=== PATIENT | female | born 1985 | race Caucasian/White ===

== ENCOUNTER 2017-05-30 11:41 | Inpatient (IN) | payer MEDICAID ==
[2017-05-30] MEDS: LACTATED RINGERS 1,000 ML IV SCH ×3 (14:40→17:18)
[2017-05-30] MEDS: SUBLIMAZE IV PRN ×2 (14:40→16:37)
[2017-05-30] MEDS ORDERED: BRETHINE SUB-Q PRN (14:52)
[2017-05-30] MEDS ORDERED: MINERAL OIL PO PRN (14:52)
[2017-05-30] MEDS ORDERED: ePHEDrine SULFATE IV PRN ×2 (14:52→16:48)
[2017-05-30] MEDS ORDERED: STADOL IV PRN (14:52)
[2017-05-30] MEDS ORDERED: BRETHINE IVP PRN (14:52)
[2017-05-30] MEDS ORDERED: SUBLIMAZE IV PRN (14:52)
[2017-05-30] MEDS ORDERED: XYLOCAINE 2% INFILTRATI ONE (14:52)
[2017-05-30] MEDS ORDERED: ZOFRAN IV PRN (14:52)
[2017-05-30] MEDS ORDERED: PITOCin/NS 20 UNIT/1000ML DRIP 20 UNITS/1,000 ML BAG IV SCH ×2 (15:00)
[2017-05-30] MEDS ORDERED: LACTATED RINGERS 1,000 ML IV SCH (15:00)
[2017-05-30] MEDS ORDERED: PITOCin/NS 30 UNIT/500ML 30 UNITS/500 ML BAG IV SCH ×2 (15:00)
[2017-05-30 15:25] LABS: Hematocrit 40.4 % (30.3-42.9); Mean Corpuscular HGB Conc 35 % (30-34); Mean Corpuscular Hemoglobin 33 pg (28-32); Mean Corpuscular Volume 94 fl (79-97); Red Blood Count 4.31 M/mm3 (3.65-5.03); Red Cell Distribution Width 13.2 % (13.2-15.2)
[2017-05-30 15:48] LABS: Platelet Count 204 K/mm3 (140-440)
[2017-05-30] MEDS ORDERED: NARCAN 2 MG/2 ML IV PRN (16:48)
[2017-05-30] MEDS ORDERED: fentaNYL-BUPIV 2 MCG/ML-0.125% 200 MCG/100 ML BAG EPIDURAL SCH (17:00)
--- NOTE | 2017-05-30 17:05 | Anesthesia Consultation ---
Anesthesia Consult and Med Hx Date of service: 05/30/17 - Airway Anesthetic Teeth Evaluation: Good ROM Head & Neck: Adequate Mental/Hyoid Distance: Adequate Mallampati Class: Class II Intubation Access Assessment: Probably Good - Pre-Operative Health Status ASA Pre-Surgery Classification: ASA2 Proposed Anesthetic Plan: Epidural, Spinal - Pulmonary Hx Asthma: No COPD: No Hx Pneumonia: No - Cardiovascular System Hx Hypertension: No - Central Nervous System Hx Seizures: No Hx Psychiatric Problems: No - Endocrine Hx Renal Disease: No Hx End Stage Renal Disease: No Hx Hypothyroidism: No Hx Hyperthyroidism: No - Hematic Hx Anemia: No Hx Sickle Cell Disease: No - Other Systems Hx Alcohol Use: No
[2017-05-30] MEDS ORDERED: D5LR 1,000 ML IV SCH (19:00)
--- NOTE | 2017-05-30 23:18 | History and Physical Report ---
History of Present Illness Date of examination: 05/30/17 Date of admission: 05/30/17 11:42 Chief complaint: I'm having contractions History of present illness: Patient is a 31 year old who presents at 38 weeks today with EDC 06/13/17. Patient started care at 16 weeks after moving here from [place]. Past History Past Medical History: no pertinent history Past Surgical History: no surgical history Social history: - Obstetrical History Expected Date of Delivery: 06/13/17 Actual Gestation: 38 Week(s) 0 Day(s) : 2 Para: 1 Number of Living Children: 1 Medications and Allergies Allergies Allergy/AdvReac Type Severity Reaction Status Date / Time No Known Allergies Allergy Verified 05/30/17 14:15 Home Medications Medication Instructions Recorded Confirmed Last Taken Type Pnv,Calcium 72/Iron/Folic Acid 1 tab PO QDAY 05/30/17 05/30/17 05/29/17 18:00 History [Pnv Plus Multivit Tab] Active Meds: Active Medications Butorphanol Tartrate (Stadol) 1 mg IV Q2H PRN PRN Reason: Pain, Moderate (4-6) Ephedrine Sulfate (Ephedrine Sulfate) 10 mg IV Q2M PRN PRN Reason: Hypotension Fentanyl (Sublimaze) 100 mcg IV Q2H PRN PRN Reason: Labor Pain Last Admin: 05/30/17 16:37 Dose: 100 mcg Fentanyl (Sublimaze) 100 mcg IV Q2H PRN PRN Reason: Labor Pain Oxytocin/Sodium Chloride (Pitocin/Ns 20 Unit/1000ml Drip) 20 units in 1,000 mls @ 0 mls/hr IV DIRECT SHWETA PRN Reason: As Directed Oxytocin/Sodium Chloride (Pitocin/Ns 20 Unit/1000ml Drip) 20 units in 1,000 mls @ 125 mls/hr IV DIRECT SHWETA Oxytocin/Sodium Chloride (Pitocin/Ns 30 Unit/500ml) 30 units in 500 mls @ 1 mls /hr IV TITR SHWETA; 1 MILLIUNITS/MIN PRN Reason: Protocol Oxytocin/Sodium Chloride (Pitocin/Ns 30 Unit/500ml) 30 units in 500 mls @ 2 mls /hr IV TITR SHWETA PRN Reason: Protocol Fentanyl/Bupivacaine/Sodium Chlor (Fentanyl-Bupiv 2 Mcg/Ml-0.125%) 200 mcg in 100 mls @ 12 mls/hr EPIDURAL TITR SHWETA PRN Reason: Protocol Last Admin: 05/30/17 17:42 Dose: 12 mls/hr Dextrose/Lactated Ringer's (D5lr) 1,000 mls @ 125 mls/hr IV DIRECT SHWETA Last Admin: 05/30/17 18:52 Dose: 125 mls/hr Mineral Oil (Mineral Oil) 30 ml PO QHS PRN PRN Reason: Constipation Naloxone HCl (Narcan 2 Mg/2 Ml) 0.2 mg IV Q5M PRN PRN Reason: Respiratory sedation Ondansetron HCl (Zofran) 4 mg IV Q8H PRN PRN Reason: Nausea And Vomiting Terbutaline Sulfate (Brethine) 0.25 mg SUB-Q ONCE PRN PRN Reason: Hyperstimulation/Hypertonicity Terbutaline Sulfate (Brethine) 0.25 mg IVP ONCE PRN PRN Reason: Hyperstimulation/Hypertonicity Review of Systems All systems: negative Genitourinary: pelvic pain, contractions - Vital Signs Vital signs: Vital Signs Pulse Pulse Ox 73 100 05/30/17 11:49 05/30/17 11:49 Temp Pulse Resp BP Pulse Ox 97.2 F L 107 H 20 110/56 99 05/30/17 20:00 05/30/17 23:11 05/30/17 20:00 05/30/17 23:09 05/30/17 23:11 - Physical Exam Cardiovascular: Regular rate, Normal S1, Normal S2 Lungs: Positive: Clear to auscultation, Normal air movement Abdomen: Positive: normal appearance, soft, normal bowel sounds Genitourinary (Female): Positive: normal external genitalia, normal perenium Vagina: Positive: normal moisture - Obstetrical FHR: auscultation normal Cervical Dilatation: 2 Cervical Effacement Percentage: 90 station: -2 Uterine Contraction Frequency (min): 5 Uterine Contraction Pattern: Regular Uterine Tone Measurement Phase: Contraction Uterine Contraction Intensity: Moderate Results Result Diagrams: 05/30/17 14:40 Abnormal lab results 05/30/17 Range/Units 14:40 WBC 11.9 H (4.5-11.0) K/mm3 MCH 33 H (28-32) pg MCHC 35 H (30-34) % All other labs normal. Assessment and Plan IUP at 38 weeks in active labor. Admit to L&D. AROM when able. Patient may have epidural. Anticipate .
--- NOTE | 2017-05-30 23:48 | Procedure Note ---
OB Delivery Note - Delivery Date of Delivery: 05/30/17 Surgeon: HAROLDO RODRIGUEZ Estimated blood loss: 300cc - Vaginal Delivery presentation: vertex Delivery position: OA Intrapartum events: none Delivery induction: none Delivery augmentation: rupture of membranes Delivery monitor: external FHT, external uterine Route of delivery: Delivery placenta: spontaneous Delivery cord: nuchal cord (x2), 3 umbilical vessels Episiotomy: none Delivery laceration: 1st degree Delivery repair: chromic Anesthesia: epidural Delivery comments: Viable male delivered over intact perineum with double nuchal cord easily reduced on the perineum. Weight 6 pounds 7 ounces. Apgars 8,9. Placenta delivered spontaneously and intact with 3vc. Small laceration repaired with 3.0 chromic. Patient tolerated procedure well. Excellent hemostasis - Infant A at 1 minute: 8 at 5 minutes: 9 Infant Gender: Male (6 pounds 7 ounces)
[2017-05-31] MEDS: MOTRIN PO SCH ×2 (00:20→01:37)
[2017-05-31] MEDS ORDERED: TUCKS PAD TP PRN (00:21)
[2017-05-31] MEDS ORDERED: ZOFRAN IV PRN (00:21)
[2017-05-31] MEDS ORDERED: NORCO 5/325 PO PRN (00:21)
[2017-05-31] MEDS ORDERED: LANSINOH TP PRN (00:21)
[2017-05-31] MEDS ORDERED: PHENERGAN PO PRN (00:21)
[2017-05-31] MEDS ORDERED: DULCOLAX PR PRN (00:21)
[2017-05-31] MEDS ORDERED: BENADRYL PO PRN (00:21)
[2017-05-31] MEDS ORDERED: SODIUM CHLORIDE FLUSH SYRINGE 10 ML IV PRN (00:21)
[2017-05-31] MEDS ORDERED: MILK OF MAGNESIA PO PRN (00:21)
[2017-05-31] MEDS ORDERED: PHENERGAN PR PRN (00:21)
[2017-05-31] MEDS ORDERED: TYLENOL PO PRN (00:21)
[2017-05-31] MEDS ORDERED: DERMOPLAST TP PRN (02:04)
[2017-05-31 12:05] LABS: Hematocrit 32.7 % (30.3-42.9); Hemoglobin 11.3 gm/dl (10.1-14.3)
[2017-05-31] MEDS: PRENATAL VITAMIN PO SCH (14:05)
[2017-05-31] MEDS: COLACE PO SCH ×2 (14:05→21:31)
--- NOTE | 2017-05-31 17:35 | Progress Note ---
Subjective Date of service: 05/31/17 Interval history: 1st day after normal vaginal delivery Patient is in the bed, comfortable. Pain is well controlled with pain meds. Ambulated well. No residual neurological deficit. No anesthesia complications Objective - Constitutional Vitals: Vital Signs - 12hr 05/31/17 08:55 Temperature 98.2 F Pulse Rate 80 Respiratory 16 Rate Blood Pressure 97/58 [Left] - Labs CBC & Chem 7: 05/31/17 11:45
[2017-06-01] MEDS: MOTRIN PO SCH ×2 (05:04→12:49)
[2017-06-01] MEDS ORDERED: BOOSTRIX IM ONE (06:00)
--- NOTE | 2017-06-01 11:09 | Progress Note ---
Assessment and Plan PPD 2 s/p . Doing well. Baby being tested for bili and if ok, patient would like to be discharged today. Subjective - Subjective Date of service: 06/01/17 Interval history: Patient is a 31 year old who presents at 38 weeks today with EDC 06/13/17. Patient started care at 16 weeks after moving here from [place]. Patient reports: appetite normal, voiding normally, pain well controlled, ambulating normally : doing well Objective - Vital Signs Latest vital signs: Vital Signs Temp Pulse Resp BP Pulse Ox 06/01/17 08:25 97.7 F 88 18 91/43 05/31/17 23:18 98.3 F 92 H 18 100/60 98 05/31/17 12:00 98.4 F 95 H 16 94/61 Intake and Output 05/31/17 06/01/17 06/01/17 22:59 06:59 14:59 Intake Total 360 600 120 Output Total 600 Balance -240 600 120 Intake: Oral 360 240 120 Intake, Free Water 360 Output: Urine 600 Void 600 Other: Total, Intake Amount 120 240 120 Total, Output Amount 600 # Voids Void 3 2 - Exam Breasts: Present: deferred Cardiovascular: Present: Regular rate, Normal S1, Normal S2 Lungs: Present: Clear to auscultation, Normal air movement Abdomen: Present: normal appearance, soft, normal bowel sounds Vulva: both: normal Uterus: Present: normal, firm Extremities: Present: normal Deep Tendon Reflex Grade: Normal +2
--- NOTE | 2017-06-01 11:12 | Discharge Summary ---
Providers - Providers Date of Admission: 05/30/17 11:42 Date of discharge: 06/01/17 Attending physician: HAROLDO RODRIGUEZ Primary care physician: HAROLDO RODRIGUEZ Hospitalization Reason for admission: active labor Delivery: Episiotomy: none Laceration: 1st degree complications: none Discharge diagnosis: IUP at term delivered [place] baby: male Hospital course: unremarkable Condition at discharge: Good Disposition: DC-01 TO HOME OR SELFCARE Plan - Discharge Medications Prescriptions: Ibuprofen [Motrin 600 MG tab] 600 mg PO Q6HR #40 tablet - Provider Discharge Summary Activity: routine, no sex for 6 weeks, no heavy lifting 4 weeks, no strenuous exercise Diet: routine Instructions: routine Additional instructions: [] Smoking cessation referral if applicable(refer to patient education folder for contact #) [] Refer to [facility] Booklet Call your doctor immediately for: * Fever > 100.5 * Heavy vaginal bleeding ( >1 pad per hour) * Severe persistent headache * Shortness of breath * Reddened, hot, painful area to leg or breast * Drainage or odor from incision. * Keep incision clean and dry at all times and follow doctor's instructions regarding bathing/showering - Follow up plan Follow up: HAROLDO RODRIGUEZ MD [Primary Care Provider] - 6 Weeks
[2017-06-01] MEDS: COLACE PO SCH (12:50)
[2017-06-01] MEDS: PRENATAL VITAMIN PO SCH (12:50)
[2017-06-01 13:08] VITALS: BP 100/61
== END 2017-06-01 19:15 | disposition home or self-care (01) | DRG 775 ==
LOC: TRG 11:41 → LD 11:42 → TRG 11:43 → OB 05-31 00:14
PROVIDERS: ADMIT Obstetrics & Gynecology; ATTEND Obstetrics & Gynecology
PROC: 10E0XZZ Delivery of Products of Conception, External Approach (ICD-10-PCS; principal; 2017-05-30)
PROC: 0HQ9XZZ Repair Perineum Skin, External Approach (ICD-10-PCS; 2017-05-30)
PROC: 10E0XZZ Delivery of Products of Conception, External Approach (ICD-10-PCS; 2017-05-30)
PROC: 3E0R3BZ Introduction of Anesthetic Agent into Spinal Canal, Percutaneous Approach (ICD-10-PCS; 2017-05-30)
DX: O69.81X0 Labor and delivery complicated by cord around neck, without compression, not applicable or unspecified (principal); O70.0 First degree perineal laceration during delivery; Z3A.38 38 weeks gestation of pregnancy; Z37.0 Single live birth
CPT/HCPCS: 36415; 59025; 85014; 85018; 85027; 86592; 86850; 86900; 86901; 99211; A6250; G0463; J2590; J3010; J7120; J7121